=== PATIENT | male | born 1965 ===

== ENCOUNTER → 2021-12-15 12:41 | Outpatient (BNVA) | payer OTHER, SELFPAY | PROVIDERS: PCP Internal Medicine; Visit Provider Nurse Practitioner Family | DX: G20 Parkinson's disease (principal); G24.9 Dystonia, unspecified; R29.6 Repeated falls | CPT/HCPCS: 99212 ==

== ENCOUNTER → 2022-09-03 09:10 | Outpatient (BNVA) | payer OTHER, SELFPAY | PROVIDERS: PCP Internal Medicine; Visit Provider Nurse Practitioner Family | DX: G20 Parkinson's disease (principal); G24.9 Dystonia, unspecified; R29.6 Repeated falls; Z59.02 Unsheltered homelessness | CPT/HCPCS: 99212 ==

== ENCOUNTER → 2022-12-11 13:24 | Outpatient (BNVA) | payer OTHER, SELFPAY | PROVIDERS: PCP Internal Medicine; Visit Provider Physician Assistant | DX: M96.1 Postlaminectomy syndrome, not elsewhere classified (principal) | CPT/HCPCS: 99212 ==

== ENCOUNTER → 2023-01-18 08:45 | Outpatient (BNVA) | payer OTHER, SELFPAY | PROVIDERS: PCP Internal Medicine; Visit Provider Nurse Practitioner Family | DX: M96.1 Postlaminectomy syndrome, not elsewhere classified (principal); G24.9 Dystonia, unspecified; G20 Parkinson's disease; R29.6 Repeated falls | CPT/HCPCS: 99202; 99212 ==

== ENCOUNTER 2023-06-04 13:59 | Outpatient (AMB) | payer OTHER, SELFPAY ==
--- NOTE | 2023-06-04 14:06 | A.OFFVIS_ITS ---
Intake Vital Signs 06/04/23 14:25 Height 6 ft 2 in Weight 246 lb 2 oz BMI 31.6 BP 146/88 H Blood Pressure Location Lt brachial Position Sitting Respiration 16 Pulse 63 Pulse Source Pulse Oximeter Pulse Oximetry (%) 97 Oxygen Delivery Method Room Air Intake Visit Reasons: Follow up-Parkinson # not in service Intake Note: Pt presents tot he office for 4 month follow up for Parkinson's. He reports he has not been sleeping at all. His legs are getting worse and he's having more constant falls now. Tremors are worse. He c/o low energy and always feeling like crap . Allergies No Known Allergies Allergy (Verified 06/04/23 14:07) HPI HPI Comments History of Present Illness Details 58 y/o male patient presents for follow up of Parkinson's and frequent falls. Pt reports dyskinesias has been improved a little bit and has less falls, too. Pt is currently on Sinemet 25/100 mg, 2 tabs QID, and pramipexole 0.25 mg QID at 7am, 11am, 3pm and 7 pm. Denies hallucination or light headedness. He reports constipation and uses stool softener. He does not sleep well, uses Tylenol PM and it helps a little bit. He feels less energy, more fatigue during daytime. [facility]LY [facility], [facility] Medical History Carpal tunnel syndrome of right wrist Injury of head and neck Surgical History History of back surgery History of carpal tunnel surgery H/O hernia repair Social History Alcohol intake: former Patient Tobacco Use Status: Never used Tobacco Review of Systems Const All systems reviewed & are unremarkable except as noted in HPI and below ENT Reports Normal hearing present Neuro Reports Normal hearing present Physical Exam Vital Signs: Last Vital Signs Pulse 63 06/04/23 14:25 Resp 16 06/04/23 14:25 BP 146/88 H 06/04/23 14:25 Pulse Ox 97 06/04/23 14:25 Oxygen Delivery Method Room Air 06/04/23 14:25 BMI result Body Mass Index 31.6 Const General: cooperative Nutritional Appearance: obese Orientation/consciousness: patient oriented x3 Limitations: physical limitations and ambulation with cane HEENT Head: Yes normocephalic Resp Effort & Inspection: normal respiratory effort and able to speak in complete sentences Neuro Other: Dyskinesia has improved a lot, no head or legs movement. Decreased finger tap, bilaterally. Soft speech. General: patient oriented x3, tone normal and moves all extremities Cranial nerves: Yes Bilaterally intact EOM present, Yes Normal facial strength present, Yes Midline tongue present, Yes Symmetric palate elevation present, Yes Normal hearing present and Yes Ability to bilaterally rotate head present Gait exam (Neuro): Assisted gait required (cane, good steps, and no arm swing. 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 Continue pramipexole to 0.125 mg QID along with Sinemet 25/100 mg QID. Advised patient to try vitamin B12 daily. 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
[2023-06-04 14:25] VITALS: BP 146/88; PULSE 63; RESP 16; O2SAT 97; BMI 31.6
== END 2023-06-04 14:55 | disposition home or self-care (01) ==
PROVIDERS: PCP Internal Medicine; Visit Provider Nurse Practitioner Family
DX: G20.B1 Parkinson's disease with dyskinesia, without mention of fluctuations (principal); R29.6 Repeated falls
CPT/HCPCS: 99214

== ENCOUNTER → 2023-06-04 13:59 | Outpatient (BNVA) | payer OTHER, SELFPAY | PROVIDERS: PCP Internal Medicine; Visit Provider Nurse Practitioner Family | DX: G20.B1 Parkinson's disease with dyskinesia, without mention of fluctuations (principal); R29.6 Repeated falls; G24.9 Dystonia, unspecified | CPT/HCPCS: 99212 ==

== ENCOUNTER 2023-10-20 08:59 | Outpatient (AMB) | payer OTHER, SELFPAY ==
--- NOTE | 2023-10-20 09:00 | MHC.OFFVIS ---
Intake Vital Signs 10/20/23 09:10 Height 6 ft 2 in Weight 246 lb BMI 31.6 BP 140/74 H Blood Pressure Location Lt brachial Position Sitting Pulse 63 Pulse Source Pulse Oximeter Pulse Oximetry (%) 100 Oxygen Delivery Method Room Air Intake Visit Reasons: 4m f/u for Parkinson's w/[facility] & MD Jennie PRESSLEY w/address Intake Note: Patient presents for 4 months f/u. Needs medical papers from 2014 to present date showing he has been seen by our practice. Allergies No Known Allergies Allergy (Verified 10/20/23 09:09) HPI HPI Comments History of Present Illness Details 58 y/o male patient presents for follow up of Parkinson's and frequent falls. Pt reports dyskinesias has improved a little, but he still falls everyday. Pt is currently on Sinemet 25/100 mg, 2 tabs QID, and pramipexole 0.25 mg QID at 7am, 11am, 3pm and 7 pm. No specific freezing episodes, but falls every day. He does not use cane regularly. Denies hallucination or light headedness. He reports constipation and uses stool softener. He does not sleep well, uses Tylenol PM and it helps a little bit. He feels less energy, more fatigue during daytime. [facility] Medical History Carpal tunnel syndrome of right wrist Injury of head and neck Surgical History History of back surgery History of carpal tunnel surgery H/O hernia repair Social History Alcohol intake: former Patient Tobacco Use Status: Never used Tobacco Review of Systems Const All systems reviewed & are unremarkable except as noted in HPI and below ENT Reports Normal hearing present Neuro Reports Normal hearing present Physical Exam Vital Signs: Last Vital Signs Pulse 63 10/20/23 09:10 BP 140/74 H 10/20/23 09:10 Pulse Ox 100 10/20/23 09:10 Oxygen Delivery Method Room Air 10/20/23 09:10 BMI result Body Mass Index 31.6 Const General: cooperative Nutritional Appearance: obese Orientation/consciousness: patient oriented x3 Limitations: physical limitations and ambulation with cane HEENT Head: Yes normocephalic Resp Effort & Inspection: normal respiratory effort and able to speak in complete sentences Neuro Other: Dyskinesia has improved a lot, no head or legs movement. Decreased finger tap, bilaterally. Soft speech. General: patient oriented x3, tone normal and moves all extremities Cranial nerves: Yes Bilaterally intact EOM present, Yes Normal facial strength present, Yes Midline tongue present, Yes Symmetric palate elevation present, Yes Normal hearing present and Yes Ability to bilaterally rotate head present Gait exam (Neuro): Assisted gait required (cane, good steps, and no arm swing. 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 Continue pramipexole to 0.125 mg QID. Advised patient to try Sinemet 25/100 mg, 1.5 tabs 6 times a day. Continue to take vitamin B12 daily. 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
[2023-10-20 09:10] VITALS: BP 140/74; PULSE 63; O2SAT 100; BMI 31.6
== END 2023-10-20 09:33 | disposition home or self-care (01) ==
PROVIDERS: PCP Internal Medicine; Visit Provider Nurse Practitioner Family
DX: G20.B1 Parkinson's disease with dyskinesia, without mention of fluctuations (principal); R29.6 Repeated falls
CPT/HCPCS: 99213

== ENCOUNTER → 2023-10-20 08:59 | Outpatient (BNVA) | payer OTHER, SELFPAY | PROVIDERS: PCP Internal Medicine; Visit Provider Nurse Practitioner Family | DX: G20.A1 Parkinson's disease without dyskinesia, without mention of fluctuations (principal); G24.9 Dystonia, unspecified; R29.6 Repeated falls | CPT/HCPCS: 99212 ==

== ENCOUNTER 2024-04-21 09:49 | Outpatient (AMB) | payer OTHER, SELFPAY ==
[2024-04-21 09:57] VITALS: PULSE 57; O2SAT 98; BMI 31.2
--- NOTE | 2024-04-21 09:57 | A.OFFVIS_ITS ---
Vital Signs 04/21/24 09:57 Height 6 ft 2 in Weight 243 lb BMI 31.2 Pulse 57 Pulse Source Pulse Oximeter Pulse Oximetry (%) 98 Oxygen Delivery Method Room Air Intake Visit Reasons: 6 month F/U Intake Note: Patient presents for 6 month walking is getting worst and falling down more. Allergies No Known Allergies Allergy (Verified 04/21/24 10:04) Medication List - Last Reconciled 04/21/24 by LISS Murdock amantadine HCl 50 mg (1/2 x 100 mg) PO BID 30 days carbidopa-levodopa 25-100 mg 2 tabs orally 5 x's per day; 30 days mecobalamin (vitamin B12) 1,000 mcg PO DAILY 30 days pramipexole 0.25 mg PO QID pramipexole 0.125 mg PO QID 30 days walker As directed, U step walker HPI Comments Details: 59-yr-old male presents for f/u visit of Parkinson's. he is accompanied by his mother, Rachelle. Pt's primary concerns are: Pt has been having difficulty with daytime energy/sleepiness, unpredictable off-times, and falls. Pt had called the office and requested that Ritalin be resumed, but we suggested he try Amantadine 50mg bid- however pt has not started this yet. Pt's mother asks about trying Cresont (CD-LD IR/ER) which was FDA approved last month- but is not yet available. Pt's current PD medication regimen: CD-LD 25-100mg 2 tabs 5 x's per day (every 3 hrs). Pramipexole 0.125mg 1 tab 5 x's per day (every 3 hrs). Do medication effects last between doses: Unsure- he is still having unpredictable episodes of freezing. States he is off x's 4 hrs per day. Do you notice your medications wearing off or kicking in: takes 1/2 hour to kick in. ADL's: Sometimes needs help w/ shirts/t-shirts. Swallowing: Denies Cough: Denies Drooling: Only at night Orthostatic lightheadedness: Denies Constipation: Yes. Dulcolax prn helps. Urinary symptoms: Denies Tremor: Denies Dyskinesia: More so when excited- not overly bothersome. Stiffness: Yes, mostly in his back and knees. Gait changes: Sometimes can walk easily, but has frequent pauses and freezes. He does use a cane. He can run much easier. Freezing: Unpredictable freezing. Falls: Multiple falls. He had a fall in mid-Mar, he landed on his hands, and his right wrist is still quite sore. He did have a [facility] ER eval- right wrist Xr-ray was negative. Mood: Anxiety, depression, frustration. His mother is his support. Hallucinations: Denies Memory: Denies any issues Sleep: Tosses and turns a lot. Exercise: Very little exercise now. He got bored with it. But also has increased pain r/t repeated falls- more so in his back, arms, shoulders. [facility] Medical History Carpal tunnel syndrome of right wrist Injury of head and neck Surgical History History of back surgery History of carpal tunnel surgery H/O hernia repair Social History Alcohol intake: former Patient Tobacco Use Status: Never used Tobacco Review of Systems Const All systems reviewed & are unremarkable except as noted in HPI and below Physical Exam Vital Signs: Last Vital Signs Pulse 57 04/21/24 09:57 Pulse Ox 98 04/21/24 09:57 Oxygen Delivery Method Room Air 04/21/24 09:57 BMI result Body Mass Index 31.2 Const General: cooperative and no acute distress Resp Effort & Inspection: normal respiratory effort and able to speak in complete sentences Neuro Other: General: A&O x's 3. Right wrist tender to touch w/o warmth, edema, discoloration. Expression: Slightly decreased Voice: Soft Tremor: None Tone: BUE R > L tone Dyskinesia: Generalized dyskinesias FFM: Bradykinesia, more so on right Foot taps: Bradykinesia, more so on right. Gait: Slow to stand, Dyskinetic, slight stoop, decreased arm swing, knees bent, short steps w/ low floor clearance. Psych: Pleasant affect, but generally frustrated. 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 Code(s): G24.9 - Dystonia, unspecified; G20 - Parkinson's disease Category: Medical (2) Right hand pain: Code(s): M79.641 - Pain in right hand Category: Medical (3) Frequent falls: Code(s): R29.6 - Repeated falls Category: Medical (4) Parkinson disease with dyskinesia and fluctuating manifestations: Code(s): G20.B2 - Parkinson's disease with dyskinesia, with fluctuations Category: Medical (5) Hypersomnia: Code(s): G47.10 - Hypersomnia, unspecified Category: Medical Plan Trial Rytary 48.75-195mg cap- 2 caps po 5 x's per day. In hopes this will reduce off-times w/o exacerbating dyskinesias. Once Rytray received, stop CD-LD 25-100mg 2 tabs 5 x's per day (every 3 hrs). Reduce Pramipexole 0.125mg from 1 tab 5 x's per day (every 3 hrs) by 1 tba per day per week, then stop. In hopes this lessens daytime sleepiness. Hold Amantadine- pt never started. Will retry low dose ritalin 10mg in extended release formulation to optimize daytime energy and optimize physical activity. OT eval & Tx for RYE pain. PT eval & tx for gait, falls. Pt may benefit from trying a U-step PD specific walker. Reviewed simple strategies to break freezing episodes. Written instructions and orders given to pt. Future considerations- referral to psychologist/counselor, optimize tx of mood s/s, Inbrija. Orders: Orders PT Evaluation and Treatment Today G20 - Parkinson's disease, G24.9 - Dystonia, unspecified, R29.6 - Repeated falls OT Evaluation and Treatment Today G20 - Parkinson's disease, G24.9 - Dystonia, unspecified, M79.641 - Pain in right hand Medications: New carbidopa-levodopa 48.75-195 mg ER (Rytary) 2 caps orally 5 x's per day; divide evenly over waking hours 30 days 300 caps 6RF G20.B2 - Parkinson's disease with dyskinesia, with fluctuations methylphenidate HCl LA (Ritalin LA) Partial Fill upon patient request. 10 mg PO QAM 30 days 30 caps 0RF G20.B2 - Parkinson's disease with dyskinesia, with fluctuations, G47.10 - Hypersomnia, unspecified Discontinued pramipexole Discontinued Reason: Patient no longer taking 0.25 mg PO QID 120 tabs 6RF carbidopa-levodopa 25-100 mg Discontinued Reason: Doctor's Order 2 tabs orally 5 x's per day; 30 days 300 tabs 6RF amantadine HCl take last dose before 3pm. Take with food. 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
== END 2024-04-21 11:07 | disposition home or self-care (01) ==
PROVIDERS: PCP Internal Medicine; Visit Provider Nurse Practitioner Family
DX: G20.B2 Parkinson's disease with dyskinesia, with fluctuations (principal); M79.641 Pain in right hand; R29.6 Repeated falls; G47.10 Hypersomnia, unspecified
CPT/HCPCS: 99214; G2211

== ENCOUNTER → 2024-04-21 09:49 | Outpatient (BNVA) | payer OTHER, SELFPAY | PROVIDERS: PCP Internal Medicine; Visit Provider Nurse Practitioner Family | DX: G20.B2 Parkinson's disease with dyskinesia, with fluctuations (principal); G24.9 Dystonia, unspecified; G47.14 Hypersomnia due to medical condition; R29.6 Repeated falls; M79.641 Pain in right hand | CPT/HCPCS: 99212 ==

== ENCOUNTER 2024-10-16 10:50 | Outpatient (REF) | payer OTHER, SELFPAY ==
--- OUTSIDE RECORDS SUMMARY | 2024-10-16 12:48 | XMS_ITS | Clinical Summary ---
Author Organization [facility], Address [address] [place] [address] Phone Care Team Providers Care Tying Machine Operator Name Role Phone Eric Metzger Primary Care Provider [phone] Allergies Active Allergy Reactions Criticality Noted Date Comments Codeine Nausea,Vomiting 10/13/2021 Ibuprofen Nausea,Vomiting 10/13/2021 Medications carbidopa-levod opa (SINEMET) 25-100 MG per tablet Take 2 tablets by mouth in the morning and 2 tablets in the evening and 2 tablets before bedtime. Active pramipexole (MIRAPEX) 0.5 MG tablet Take 0.5 mg by mouth 1 (one) time each day Active Active Problems Problem Noted Date Diagnosed Date Back pain 10/13/2021 Degeneration of lumbar intervertebral disc 10/13 Social History Tobacco Use Types Packs/Day Years Used Date Smoking Tobacco: Former Cigarettes Q uit: 08/10/2014 Smokeless Tobacco: Never Alcohol Use Standard Drinks/Week Comments Not Currently 0 (1 standard drink = 0.6 oz pur e alcohol) quit 2013 Sex and Gender Information Value Date Recorded Sex Assigned at Not on file Legal Sex Male 11:17 AM EST Gender Identity Not on file Sexual Orientation Not on file Last Filed Vital Signs Vital Sign Reading Time Taken Comments Blood Pressure 126/77 10/13/2021 11:28 AM EST Pulse 59 10/13/2021 11:28 AM EST Temperature 36.2 ??C (97.2 ??F) 10/13/2021 11:[address] Respiratory Rate - - Oxygen Saturation - - Inhaled Oxygen Concentration - - Weight 113 kg (250 lb) 10/13/2021 11:28 AM EST Height 185.4 cm (6' 1 ) 10/13/2021 11:28 AM EST Body Mass Index 32.98 10/13/2021 11:28 AM EST Plan of Treatment Health Maintenance Due Date Last Done Comments Hepatitis B Vaccine (1 of 3 - 19+ 3-dose series) 1985 Colorectal Cancer Screening: Annual FOBT 2015 Colorectal Cancer Screening: Colonoscopy 2015 Colorectal Cancer Screening: Sigmoidoscopy 2015 Influenza Vaccine (#1) 2024 Pneumococcal Vaccine: Pediat rics (0 to 5 Years) and At-Risk Patients (6 to 64 Years) Aged Out No longer eligible b ased on patient's age to complete this topic Insurance [facility] Care Teams Tying Machine Operator Relationship Specialty Start Date End Date Eric Metzger [address] [place] [address] PCP - General Internal Medicine 10/22/21
--- OUTSIDE RECORDS SUMMARY | 2024-10-16 12:48 | XMS_ITS | Encounter Summary ---
Author Organization [facility] Address [address] [place] [address] Care Team Providers Care Public Health Officer Name Role Phone Eric Melissa MD Primary Care Provider [phone] Reason for Visit * Reason Onset Date Comments Back Pain 10/05/2024 Fall 10/05/2024 Encounter Details Date Type Department Care Team (Late st Contact Info) Description 10/05/2024 Telephone Internal Medicine - [facility] [address] [place], [place] [phone] Eric Melissa MD [address] [place] [id number] Back Pain; Fall Social History Tobacco Use Types Packs/Day Years Used Date Smoking Tobacco: Former Cigarettes Q uit: 08/10/2014 Smokeless Tobacco: Never Alcohol Use Standard Drinks/Week Comments No 0 (1 standard drink = 0.6 oz pur e alcohol) Sex and Gender Information Value Date Recorded Sex Assigned at Not on file Legal Sex Male 1:16 PM EST Gender Identity Not on file Sexual Orientation Not on file documented as of this encounter Progress Notes * Anel Samano MA - 10/06/2024 1:39 PM EST Hospital follow up scheduled. * Francine Jalloh - 10/06/2024 11:56 AM EST Patient is calling back from [phone] please call back * Celia Dawson MA - 10/05/2024 12:53 PM EST Unable to reach pt, number on file no longer in service alternate number no VM set up just rings * Eric Melissa MD - 10/05/2024 12:25 PM EST Noted. He needs to book a follow-up appointment once he is discharged from the hospital to set up PT/OT and home services. * Sarah Beth Granger RN - 10/05/2024 9:52 AM EST FYI Spoke with pt he is c/o frequent falls, he has Parkinson's using walker and cane,he has been falling daily 4-5 times, he denies hitting his head, Advised to call ambulance an to go to the ER to get evaluated, pt states he can drive himself to [place], he wears kneepads and uses walker and cane. Advised pt to call after evaluated to schedule f/u appt, he hasn't been seen since last December, he states hisneurologist has been ordering his medications, ? Pt to get some home services PT/OT in place * Karishma Newton - 10/05/2024 9:36 AM EST Patient call requires triage: Symptoms patient is presenting: pt fell last week and injured his back, he has parkinsons and has had rods put in his back, he has back pain and feels like something may have shifted in his back. How long has patient had these symptoms?: 1 week For ALL patients calling to schedule any appointment (routine, sick visit, follow up, consult, etc.) in the outpatient setting please ask the following questions: Do you have fever of higher than 101, sore throat with difficulty swallowing or severe shortness ofbreath? no If YES to any of these above symptoms, send a message to triage and do not book. Red dot. If no, an audio or video visit should be booked. Have you had close contact with someone with Coronavirus in the last 14 days? no Have you traveled abroad? no Have you traveled recently to another state outside of [place], [place], [place], [place], [place], [place], [place]? no o If yes, did you quarantine for 14 days or have a negative covid test? no If yes to any of the above, patient is not to be scheduled in office until after 14 day quarantine or negative covid test. If pain or injury related was it due to an accident at work or from a motor vehicle accident? If yes, date of accident/Injury: No If yes, gather 3rd alliance party insurance information Third Libertarian Information: not applicable PCP: Eric Melissa MD Payor: / No coverage found. documented in this encounter Plan of Treatment Upcoming Encounters Date Type Department Care Team (Late st Contact Info) Description 10/19/2024 10:30 AM EST Office Visit Internal Medicine - [address] [phone] Coy Shaw NP [address] [place] [phone] documented as of this encounter Visit Diagnoses Not on filedocumented in this encounter Care Teams Public Health Officer Relationship Specialty Start Date End Date Eric Melissa MD [address] [place] [address] PCP - General Internal Medicine 07/24/16 documented as of this encounter
--- OUTSIDE RECORDS SUMMARY | 2024-10-16 12:48 | XMS_ITS | Encounter Summary ---
Author Organization [employer] Address [address] [facility] [address] [place] [address] Care Team Providers Care Solution Specialist Name Role Phone Unavailable Primary Care Provider Unavailabl e Reason for Visit * Reason Onset Date Comments appointment slip 02/11/2023 Encounter Details Date Type Department Care Team (Late st Contact Info) Description 02/11/2023 Telephone [facility] [address] [place], [place] [phone] Suzanne Matthew BDS [address] [place], [place] [phone] appointment slip Social History Tobacco Use Types Packs/Day Years Used Date Smoking Tobacco: Never Assessed Sex and Gender Information Value Date Recorded Sex Assigned at Male 06/15/2022 10:26 AM EDT Legal Sex Male 10:26 AM EDT Gender Identity Male 06/15/2022 10:26 AM EDT Sexual Orientation Don't know 06/15/2022 10 :26 AM EDT documented as of this encounter Miscellaneous Notes * Telephone Encounter - Angeline Luis - 02/11/2023 11:28 AM EDT Patient is requesting appt slip to be mailed out to his address DR documented in this encounter Plan of Treatment Not on file documented as of this encounter Visit Diagnoses Not on filedocumented in this encounter
--- OUTSIDE RECORDS SUMMARY | 2024-10-16 12:48 | XMS_ITS | Encounter Summary ---
Author Organization [employer] Address [address] [facility] [address] [place] [address] Care Team Providers Care Crocheter Name Role Phone Unavailable Primary Care Provider Unavailabl e Reason for Visit * Reason Onset Date Comments dentures 04/09/2023 Encounter Details Date Type Department Care Team (Late st Contact Info) Description 04/09/2023 Telephone [facility] [address] [place], [place] [phone] Suzanne Matthew BDMichelle [address] [place], [place] [phone] dentures Social History Tobacco Use Types Packs/Day Years [...] * Telephone Encounter - Angeline Luis - 04/09/2023 12:55 PM EDT Patient is unhappy with his bottom dentures and wants a new set made. Informed patient that insurance does not cover another set of dentures for another 7 year and it would be an out of pocket expense. He questioned why he would have to pay for soemthign that is not fitting correctly I did inform patient that he can get an adjustment. * Telephone Encounter - Angeline Luis - 04/09/2023 12:53 PM EDT Patient is unhappy with his bottom dentures and wants a new set made. Informed patient that insurance does not cover another set of dentures for another 7 year and it would be an out of pocket expense. He questioned why he would have to pay for soemthign that is not fitting correctly I did inform patient that he can get an adjustment. documented in this encounter Plan of Treatment Not on file documented as of this encounter Visit Diagnoses Not on filedocumented in this encounter
--- OUTSIDE RECORDS SUMMARY | 2024-10-16 12:48 | XMS_ITS | Clinical Summary ---
Author Organization [facility] Address [address] [place] [address] Care Team Providers Care Complaint Evaluation Supervisor Name Role Phone Eric Melissa MD Primary Care Provider [phone] Allergies Active Allergy Reactions Criticality Noted Date Comments Codeine Nausea And Vomiting 04/02/2015 Ibuprofen Nausea And Vomiting 04/02/2015 Medications acetaminophen (TYLENOL 8 HOUR) 650 mg 8 hr tablet TAKE 1 TABLET BY MOUTH TWICE A DAY NEEDED FOR PAIN 4 Active pramipexole (MIRAPEX) 0.25 mg tablet Take 1 Tablet by mouth 4 times daily. Active cyclobenzaprine (FLEXERIL) 10 mg tablet TAKE 1 TABLET BY MOUTH AT BEDTIME ONCE DAILY NEEDED FOR MUSCLE SPASMS. 4 Active sildenafiL (VIAGRA) 50 mg tablet Take 1 tab 30 mintues before intercourse 2 Active carbidopa-levod opa (SINEMET) 25-100 mg per tablet Take 2 tablets by mouth 3 times daily. Active Active Problems Problem Noted Date Diagnosed Date Lumbar spondylosis 05/21/2022 Anxiety 10/07/2021 Bipolar disorder 10/07/2021 Abdominal wall pain 05/17/2019 Diverticulosis 09/18/2016 Parkinson's disease 01/01/2015 Overview (10/09/2024): Neurology (10/15/17): second opinion with Dr Lainez, cont lyrica 50mg bid, cont sinemet 25/100 (2-1-1-1), mirapex 0.5mg qid. Precribed ritalin 10mg BID Neurology (05/21/17): Seen for Parkinson, continue Sinemet 25/100 6 tabs a day, pramipexole 0.5 mg 3 times a day, continue exercise Dr Aburto, neurologist. Failed back syndrome 08/10/2014 Overview (10/09/2024): Last Assessment & Plan: Patient is 3 weeks s/p L3-S1 fusion (anterior lateral and posterior) and notes that his preop back and leg symptoms are improved. He is experiencing surgical/incisional pain, requiring oxycodone. He mentions if he stands for 15 minutes it bothers him and gives him left leg pain, left buttock, posterior thigh. When he is lying down his legs go numb, he is not sleeping well. He denies fever, sweats chills, wound drainage. He is eating well. Bowel bladder intact. He is ambulating with a cane. Patient has follow-up appointment in 6 weeks with lumbar spine x-rays with Dr. Ramirez. All postop questions answered. I asked explain things should continue to improve with time as things heal. He can call with any concerns or questions prior to his next appointment. Foot drop 08/10/2014 Encounters Date Type Department Care Team Description 10/05/2024 Telephone Internal Medicine - [facility] [address] [place] [address] Eric Melissa MD Back Pain; Fall from Last 3 Months Immunizations Name Administration Dates Next Due Influenza trivalent, 0.5mL, preservative free (Fluarix; FluLaval; Fluzone) ages 6mo and older (Afluria) 3 years and older 09/18/2017 Surgical History Surgery Date Site/Laterality Comments HERNIA REPAIR Right PROCEDURE: HISTORICAL HERNIA REPAIR/ING CARPAL TUNNEL RELEASE Right PROCEDURE: HISTORICAL CARPAL TUNNEL REL; COMMENT: twice OTHER SURGICAL HISTORY PROCEDURE: OSTEOGENIC STIMULATOR SPINAL COLONOSCOPY 09/18/16 PROCEDURE: HISTORICAL COLONOSCOPY; COMMENT: tics; repeat in ten yrs under propofol Medical History Medical History Date Comments Parkinson's disease (CMS/HCC) DX :Parkinson's disease (HCC) Bipolar disorder (CMS/HCC) DX:Bi polar disorder (HCC) Anxiety DX:Anxiety Family History Medical History Relation Name Comments Hypertension Father Other: Heart disease Father Valvula r heart disease Stroke Father Relation Name Status Comments Brother Alive Father Sister Alive Social History Tobacco Use Types Packs/Day Years [...] on file Sexual Orientation Not on file Obstetrics History Last Filed Vital Signs Vital Sign Reading Time Taken Comments Blood Pressure 138/82 01/13/2024 9:22 AM EDT Pulse 69 01/13/2024 9:02 AM EDT Temperature - - Respiratory Rate - - Oxygen Saturation - - Inhaled Oxygen Concentration - - Weight 111 kg (243 lb 11.2 oz) 01/13/2024 9:02 A M EDT Height 185.4 cm (6' 1 ) 01/13/2024 9:02 AM EDT Body Mass Index 32.15 01/13/2024 9:02 AM EDT Plan of Treatment Upcoming Encounters Date Type Department Care Team (Late st Contact Info) Description 10/19/2024 10:30 AM EST Office Visit Internal Medicine - [address] [address] Coy Shaw NP [address] [place] [id number] Health Maintenance Due Date Last Done Comments DTaP,Tdap,and Td Vaccines (1 - Tdap) 1985 Hepatitis B Vaccines (1 of 3 - 19+ 3-dose series) 1985 Pneumococcal Vaccine: 50+ Years (1 of 1 - PCV) 01/22/2016 Zoster Vaccines (1 of 2) 01/22/2016 Depression Screening 07/25/2022 HIV Screening 07/25/2022 Hepatitis C Screening 07/25/2022 Lung Cancer Screening (Low Dose CT) 07/25/2022 Social Influencers of Health Screening 07/25/2022 COVID-19 Vaccine (3 - 2023-2 5 season) 2024 01/10/2021, 12/20/2020 Influenza Vaccine (#1) 2024 09/18/2017 Colorectal Cancer Screening: Colonoscopy 09/18/2026 09/18/2016 Cholesterol Screening (Lipid Panel) 03/26/2027 03/26/2022 HIB Vaccines Aged Out No longer eligi ble based on patient's age to complete this topic HPV Vaccines Aged Out No longer eligi ble based on patient's age to complete this topic Hepatitis A Vaccines Aged Out No long er eligible based on patient's age to complete this topic IPV Vaccines Aged Out No longer eligi ble based on patient's age to complete this topic MMR Vaccines Aged Out No longer eligi ble based on patient's age to complete this topic Meningococcal ACWY Vaccine Aged Out N o longer eligible based on patient's age to complete this topic Meningococcal B Vacine Aged Out No lo nger eligible based on patient's age to complete this topic Pneumococcal Vaccine: Pediatrics (0 to 5 Years) and At-Risk Patients (6 to 64 Years) Aged Out No longer eligible b ased on patient's age to complete this topic RSV Immunization Patients Under 20 months Aged Out No longer eligible b ased on patient's age to complete this topic Varicella Vaccines Aged Out No longer eligible based on patient's age to complete this topic Procedures Procedure Name Priority Date/Time Associated Diagnosis Comments LIPID PANEL Routine 03/26/2022 COLONOSCOPY Routine 09/18/2016 from Last 3 Months or Most Recently Relevant to Health Maintenance Results * Lipid panel (03/26/2022) LDL/HDL Ratio 3 0 - 4 Triglycerides 124 0 - 150 mg/dL Cholesterol 183 0 - 200 mg/dL HDL 59 >=40 mg/dL LDL Cholesterol 100 0 - 100 mg/dL Blood Venous blood specimen / Unknown us Historical Provider LAB BLOOD ORDERABLES Rizwana l Result * Colonoscopy (09/18/2016) Colonoscopy No interpretation abstracted Anatomical Region Laterality Modality Other us Historical Provider HEALTH MAINTENANCE Final Result from Last 3 Months or Most Recently Relevant to Health Maintenance Care Teams Complaint Evaluation Supervisor Relationship Specialty Start Date End Date Erci Melissa MD [address] [place] [id number] PCP - General Internal Medicine 07/24/16
--- OUTSIDE RECORDS SUMMARY | 2024-10-16 12:48 | XMS_ITS | Clinical Summary ---
Author Organization [employer] Address [address] [facility] [address] [place] [address] Care Team Providers Care Casino Floorperson Name Role Phone Unavailable Primary Care Provider Unavailabl e Allergies No known active allergies Medications No known medications Social History Tobacco Use Types Packs/Day Years Used Date Smoking Tobacco: Never Smokeless Tobacco: Never Tobacco Cessation:Counseling Given: Not Answered Sex and Gender Information Value Date Recorded Sex Assigned at Male 06/15/2022 10:26 AM EDT Legal Sex Male 10:26 AM EDT Gender Identity Male 06/15/2022 10:26 AM EDT Sexual Orientation Don't know 06/15/2022 10 :26 AM EDT Plan of Treatment Health Maintenance Due Date Last Done Comments CT Colonography 1966 Colonoscopy 1966 Colorectal Cancer Screening 1966 Dental Oral Exam 1966 Dental Prophylaxis 1966 Dental X-Ray: Bitewings 1966 Dental X-Ray: Full Mouth 1966 Depression Screening 1966 FIT DNA/Cologuard 1966 FIT 1966 FOBT 1966 HIV Screening 1966 Lipid Panel 1966 SDOH Screening 1966 Sigmoidoscopy 1966 Alcohol/Substance Use Screening 1978 Hepatitis C Screening 01/22/1984 DTaP/Tdap/Td Vaccines (1 - Tdap) 1985 Hepatitis B Vaccines (1 of 3 - 19+ 3-dose series) 1985 Pneumococcal Vaccine: 50+ Years (1 of 1 - PCV) 01/22/2016 Zoster Vaccines (1 of 2) 01/22/2016 COVID-19 Vaccine (3 - 2023-2 5 season) 2024 01/10/2021, 12/20/2020 Influenza Vaccine (#1) 2024 09/18/2017 Tobacco Screening 11/22/2024 11/23/2023 RSV Patients and Patients Aged 60 years or older (1 - 1-dose 75+ series) 2041 HIB Vaccines Aged Out No longer eligi [...] patient's age to complete this topic Meningococcal Vaccine Aged Out No karen cierra eligible based on patient's age to complete this topic RSV under 20 months Aged Out No longe r eligible based on patient's age to complete this topic Rotavirus Vaccines Aged Out No longer eligible based on patient's age to complete this topic [facility] ST[facility] ADULT
== END 2024-10-16 10:51 | disposition home or self-care (01) ==
LOC: CF 10:50
DX: M96.1 Postlaminectomy syndrome, not elsewhere classified (principal)
CPT/HCPCS: 99212

== ENCOUNTER 2024-10-16 13:15 | Outpatient (AMB) | payer OTHER, SELFPAY ==
--- NOTE | 2024-10-16 13:15 | HO.SPINEOV ---
Intake Visit Reasons: low back pain Intake Note: Mr. Ferguson is here today c/o low back pain. Oyster Bed Worker Required: No Allergies No Known Allergies Allergy (Verified 10/16/24 13:16) Assessment & Plan Assessment & Plan (1) Failed back syndrome: Code(s): M96.1 - Postlaminectomy syndrome, not elsewhere classified Category: Medical Plan Mr Ferguson is returning to the office today to see us. He had an L3-S1 anterior/oblique lumbar interbody fusion done a few years ago. Unfortunately he never so much relief in the way of the back pain after surgery. He has history of Parkinson's disease and has had a number of falls over the last few months. In fact more than a few, he has had about 4 falls a day. He had x-rays done at the [facility] Emergency room showing evidence of compression fractures in the lower thoracic upper lumbar area which may be new. He has been having ongoing back pain over the last few months in the setting of these falls. Specifically on the right side of the low back in the left side of the upper lumbar region. His exam is reassuring that he can stand independently and walk but he does have a hunched posture. I did review the x-rays and I am not sure but there maybe something in the upper lumbar lower thoracic that looks like it could be a new compression fracture. I will get a new lumbar MRI at [facility] open MRI at the patient's request and I can call him with the results. Total amount of time spent in this visit was 20 minutes in discussion of symptoms, ordering imaging and subsequent plan of care Dickson Ramirez MD,PhD [facility] Orders: Orders MR lumbar spine wo con Today M96.1 - Postlaminectomy syndrome, not elsewhere classified Coding Level of Care Code Est Pt Level 3 (02652) Diagnoses Failed back syndrome M96.1
--- OUTSIDE RECORDS SUMMARY | 2024-10-16 15:28 | XMS_ITS | Clinical Summary ---
Author Organization [facility], Address [address] [place] [address] Phone Care Team Providers Care Heavy Equipment Engine Mechanic Name Role Phone Eric Metzger Primary Care Provider [phone] Allergies Active Allergy Reactions Criticality Noted Date [...] patient's age to complete this topic Insurance [facility] Care Teams Heavy Equipment Engine Mechanic Relationship Specialty Start Date End Date Eric Metzger [address] [place] [address] PCP - General Internal Medicine 10/22/21
--- OUTSIDE RECORDS SUMMARY | 2024-10-16 15:28 | XMS_ITS | Clinical Summary ---
Author Organization [facility] [address] it Address [address] [place] [address] Care Team Providers Care Orthodontist Small Business Owner Name Role Phone Eric Melissa MD Primary Care Provider [phone] Allergies Active Allergy Reactions Criticality Noted Date [...] Team Description 10/05/2024 [facility] [address] [facility] [place] [phone] Eric Melissa MD Back Pain; Fall from [...] (HCC) Bipolar disorder (CMS/HCC) DX:Bi polar disorder ([facility]) Anxiety DX:Anxiety Family History Medical History Relation Name Comments Hypertension Father Other: Heart disease Father Valvjose r heart disease Stroke Father Relation Name [...] AM EST Office Visit Internal Medicine - [address] [address] Coy Shaw NP [address] [place] [phone] Health Maintenance Due Date Last Done Comments [...] mg/dL Blood Venous blood specimen / Unknown Historical Provider LAB BLOOD ORDERABLES Rizwana l Result * Colonoscopy (09/18/2016) Colonoscopy No interpretation abstracted Anatomical Region Laterality Modality Other us Historical Provider HEALTH MAINTENANCE Final Result from Last 3 Months or Most Recently Relevant to Health Maintenance Insurance [facility] Care Teams Orthodontist Small Business Owner Relationship Specialty Start Date End Date Eric Melissa MD [address] [place] [id number] PCP - General Internal Medicine 07/24/16
--- OUTSIDE RECORDS SUMMARY | 2024-10-16 15:28 | XMS_ITS | Encounter Summary ---
Author Organization [facility] Address [address] [place] [address] Care Team Providers Care Sports Internship Name Role Phone Eric Melissa MD Primary Care Provider [phone] Reason for Visit * Reason Onset Date Comments Back Pain 10/05/2024 Fall 10/05/2024 Encounter Details Date Type Department Care Team (Late st Contact Info) Description 10/05/2024 Telephone [facility] [address] [place] [phone] Eric Melissa MD [address] [place] [address] Back Pain; Fall Social History Tobacco Use [...] AM EST Patient is calling back from [phone] please call back * Celia Dawson MA [...] traveled recently to another state outside of [place], [place], [place], [place], [place], [place], [place]? no o If yes, did you quarantine [...] gather 3rd alliance party insurance information Third Alliance Party Information: not applicable PCP: Eric Melissa MD Payor: / No coverage found. documented in this encounter Plan of Treatment Upcoming Encounters Date Type Department Care Team (Late st Contact Info) Description 10/19/2024 10:30 AM EST Office Visit Internal Medicine - [address] [phone] Coy Shaw NP [address] [place] [phone] documented as of this encounter Visit Diagnoses Not on filedocumented in this encounter Care Teams Sports Internship Relationship Specialty Start Date End Date Eric Melissa MD [address] [place] [address] PCP - General Internal Medicine 07/24/16 documented as of this encounter
--- OUTSIDE RECORDS SUMMARY | 2024-10-16 15:28 | XMS_ITS | Encounter Summary ---
Author Organization [employer] Address [address] [facility] [address] [place] [address] Care Team Providers Care Coal Sample Tester Name Role Phone Unavailable Primary Care Provider Unavailabl e Reason for Visit * Reason Onset Date Comments dentures 04/09/2023 Encounter Details Date Type Department Care Team (Late st Contact Info) Description 04/09/2023 Telephone [facility] [address] [place], [place] [phone] Suzanne Matthew BDMichelle [address] [place], [place] [phone] dentures Social History Tobacco Use Types Packs/Day [...]
--- OUTSIDE RECORDS SUMMARY | 2024-10-16 15:28 | XMS_ITS | Clinical Summary ---
Author Organization [employer] Address [address] [facility] [address] [place] [address] Care Team Providers Care Supervisor Cloth Winding Name Role Phone Unavailable Primary Care Provider [...] patient's age to complete this topic Insurance [facility] MEDICAID STAND ADULT
--- OUTSIDE RECORDS SUMMARY | 2024-10-16 15:28 | XMS_ITS | Encounter Summary ---
Author Organization [employer] Address [address] [facility] 7t [place] [address] Care Team Providers Care Asset Protection Greeter Name Role Phone Unavailable Primary Care Provider Unavailabl e Reason for Visit * Reason Onset Date Comments appointment slip 02/11/2023 Encounter Details Date Type Department Care Team (Late st Contact Info) Description 02/11/2023 Telephone [facility] [address] [place], [place] [phone] Suzanne Matthew BDS [address] [place], [place] [phone] appointment slip Social History Tobacco Use Types [...]
== END 2024-10-16 13:44 | disposition home or self-care (01) ==
PROVIDERS: PCP Internal Medicine; Visit Provider Physician Assistant
DX: M96.1 Postlaminectomy syndrome, not elsewhere classified (principal)
CPT/HCPCS: 99213

== ENCOUNTER 2024-10-23 08:45 | Outpatient (AMB) | payer OTHER, SELFPAY ==
[2024-10-23 08:55] VITALS: BP 140/8; PULSE 59; O2SAT 97; BMI 29.9
--- NOTE | 2024-10-23 08:55 | MHC.OFFVIS ---
Vital Signs 10/23/24 08:55 Height 6 ft 2 in Weight 233 lb BMI 29.9 BP 140/8 H Blood Pressure Location Rt brachial Position Sitting Pulse 59 Pulse Source Pulse Oximeter Pulse Oximetry (%) 97 Oxygen Delivery Method Room Air Intake Visit Reasons: Follow up Biophysics Teacher Required: No Accompanied by: Self / Same As Patient Allergies No Known Allergies Allergy (Verified 10/23/24 09:03) Medication List - Last Reconciled 10/23/24 by LISS Murdock carbidopa-levodopa 50-200 mg ER 1 tab PO ONCE 30 days gukwbcitb-hacxpnse-lkhhqnvzrh 31.25-125-200 mg 1 tab PO QID 30 days cyclobenzaprine 5 - 10 mg (1 - 2 x 5 mg) PO BEDTIME PRN 30 days mecobalamin (vitamin B12) 1,000 mcg PO DAILY 30 days methylphenidate HCl 10 mg PO QAM 30 days walker As directed, U step walker HPI Comments Details: The patient is a 59-year-old male presenting with a follow-up for Parkinson's Disease management. Recent fall resulted in back muscle strain, back pain, possible, vertebral compression fractures, right hand injury. Patient initially seen at [facility], and I said to follow up with [facility] neurosurgery clinic, who advised him to undergo follow up back MRI. However, patient is concerned about doing MRI, due to history of claustrophobia and MRI, and concern for pain exacerbation upon laying flat for an extended period of time.. Patient reports is most concerning Parkinson's symptom is freezing gate and falling. Presents symptoms of freezing and falling. Falls occur primarily when transitioning from rest to movement, exacerbated by spinal issues. 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 Constipation is unresolved by Dulcolax, with symptoms persisting despite substantial fluid intake. Current medications include Carbidopa-Levodopa taken every three hours, showing reduced symptom control. Activities of daily living (ADL's): Independent Instrumental activities of daily living (IADL's): Independent Swallowing difficulty: Denies Cough: Denies Drooling: only at night Orthostatic lightheadedness: Denies Constipation: Difficulty school Q 2 days. Drinks 2 gal of water and 1 L soda a day. Urinary symptoms: Denies Tremor: None Dyskinesia: None Stiffness: back pain Musculoskeletal symptoms: Reports back pain Gait difficulties or changes: Reports Freezing episodes of gait: Reports Falls: Reports Mood difficulties or changes: Reports depression- frustration due to not being able to live as actively as he used to. Hallucinations: Denies Memory difficulties or changes: Denies Sleep difficulties: Denies Exercise routine: No specific exercise plan, owing to his gate and back difficulties. He does need to go up and down the stairs at his home.. Socialization and cognitive activities: his mother is supportive Medications Since the last visit, he did trial the Concerta 18 mg, but he felt that this was too strong. He trialed Rotary 48.75?195 mg cap ? two caps PO five times per day, however, he stated this made him too tired. He is since resumed carbidopa levodopa ER 50? 200 mg one tab five times a day, every three hours. Unfortunately, this wears off after about two hours. Review of Systems - Neurological: Denies tremor, dyskinesia, arm/leg stiffness. Reports falls, freezing episodes, and mobility issues. - Psychiatric: Reports depression, denies hallucinations. - Gastrointestinal: Reports constipation, hard stools. - Respiratory: Denies shortness of breath. - Musculoskeletal: Reports pain from falls. - General: Denies dizziness, denies lightheadedness. [facility] Medical History (Updated 04/21/24 @ 12:46 by LISS Murdock) Parkinsons disease Carpal tunnel syndrome of right wrist Injury of head and neck Surgical History History of back surgery History of carpal tunnel surgery H/O hernia repair Social History Alcohol intake: former Patient Tobacco Use Status: Never used Tobacco Physical Exam Vital Signs: Last Vital Signs Pulse 59 10/23/24 08:55 BP 140/8 H 10/23/24 08:55 Pulse Ox 97 10/23/24 08:55 Oxygen Delivery Method Room Air 10/23/24 08:55 BMI result Body Mass Index 29.9 Const General: cooperative and no acute distress Resp Effort & Inspection: normal respiratory effort and able to speak in complete sentences Neuro Other: General: A&O x's 3. Expression: Slightly decreased Voice: Soft Tremor: None Tone: BUE R > L tone Dyskinesia: None observed today FFM: Bradykinesia, more so on right Foot taps: Bradykinesia, more so on right Musculoskeletal: Back pain, causing restlessness needs to stand intermittently visit. Gait: Slow to stand, slight stoop, decreased arm swing, knees bent, short steps w/ low floor clearance. Gait became more festinating-freezing as visit progressed- to the point where patient require wheelchair to leave the office, where as he had walked with a cane. Last CD LD dose approximately 3 hours prior. Psych: Pleasant affect, but generally frustrated. 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 Code(s): G24.9 - Dystonia, unspecified; G20 - Parkinson's disease Category: Medical (2) Right hand pain: Code(s): M79.641 - Pain in right hand Category: Medical (3) Frequent falls: Code(s): R29.6 - Repeated falls Category: Medical (4) Parkinson disease with dyskinesia and fluctuating manifestations: Code(s): G20.B2 - Parkinson's disease with dyskinesia, with fluctuations Category: Medical (5) Hypersomnia: Code(s): G47.10 - Hypersomnia, unspecified Category: Medical Plan Parkinson's: - Discontinue carbidopa-levodopa 50-200 mg ER 25-100mg 2 tabs 5 x's per day (every 3 hrs) order. - Start Stalevo (guzcxrisr-dqahaahw-utkvfayjzq ) 31.25-125-200 mg- 1 tab 4 times a day - Start carbidopa-levodopa 50-200 mg ER- 1 tab daily at bedtime - Patient encouraged to obtain and use Parkinson's specific walker, U-step walker. - previous trials: Pramipexole 0.125mg -exacerbated daytime. - Future considerations: Vyalev. Constipation: - Recommend dietary changes and hydration monitoring. - Use Colace 100mg twice a day - Use MiraLAX 17 GM daily as needed for constipation. - Gradually decrease soda and high fluid intake to less than 100 ounces per day. - Monitor response to treatment. Hypersomnia, likely secondary to Parkinson's: - Trial methylphenidate IR 10 mg daily in the morning. - previous trials- Concerta 18 mg- patient felt it was too strong. Back pain: - follow up with neurosurgery to discuss if an open MRI is possible and if you may take prescribed medication for anxiety.Patient Instructions General: - We will mail patient a review of the above instructions patient education material. - Should symptoms worsen or concerns arise, contact our office for assistance and guidance. - Maintain follow-up appointments as advised for further medication and symptom management adjustments. Pt to follow-up in 6 months or sooner prn. Medications: New docusate sodium (Colace) 200 mg (2 x 100 mg) PO BEDTIME 30 days 60 caps 6RF polyethylene glycol 3350 (Miralax) 17 grams PO DAILY 30 days PRN 30 ea 6RF constipation hkoklrbro-qzmrgqli-jybshoqdvn 31.25-125-200 mg 1 tab PO QID 30 days 120 tabs 3RF methylphenidate HCl Partial Fill upon patient request. 10 mg PO QAM 30 days 30 tabs 0RF Changed From carbidopa-levodopa 50-200 mg ER 1 tab orally 5 x's per day; divide evenly over waking hours 30 days 150 tabs 1RF To carbidopa-levodopa 50-200 mg ER At bedtime 1 tab PO ONCE 30 days 30 tabs 3RF Discontinued carbidopa-levodopa 48.75-195 mg ER (Rytary) Discontinued Reason: Doctor's Order 2 caps orally 5 x's per day; divide evenly over waking hours 30 days 300 caps 6RF G20.B2 - Parkinson's disease with dyskinesia, with fluctuations pramipexole Discontinued Reason: Doctor's Order 0.125 mg PO QID 30 days 120 tabs 3RF methylphenidate HCl ER (Concerta) Partial Fill upon patient request. 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
--- OUTSIDE RECORDS SUMMARY | 2024-10-23 09:06 | XMS_ITS | Clinical Summary ---
Author Organization [employer] Address [address] [facility] 7t [place] [address] Care Team Providers Care Wellfield Technician Name Role Phone Unavailable Primary Care Provider [...] patient's age to complete this topic Insurance [facility] STAND ADULT
--- OUTSIDE RECORDS SUMMARY | 2024-10-23 09:06 | XMS_ITS | Clinical Summary ---
Author Organization [facility] [address] [facility] Building Address [address] [facility] [place] [address] Phone Care Team Providers Care Scanning Tech Name Role Phone Eric Melissa MD Primary Care Provider [phone] Allergies Active Allergy Reactions Criticality Noted Date Comments Codeine Nausea And Vomiting 04/02/2015 Ibuprofen Nausea And Vomiting 04/02/2015 Medications pramipexole (MIRAPEX) 0.25 mg tablet Take 1 Tablet by mouth 4 times daily. Active cyclobenzaprin e (FLEXERIL) 10 mg tablet TAKE 1 TABLET BY MOUTH AT BEDTIME ONCE DAILY NEEDED FOR MUSCLE SPASMS. 4 Active sildenafiL (VIAGRA) 50 mg tablet Take 1 tab 30 mintues before intercourse 2 Active carbidopa-levo dopa (SINEMET) 25-100 mg per tablet Take 2 tablets by mouth 3 times daily. Active acetaminophen (TYLENOL 8 HOUR) 650 mg 8 hr tablet Take 1 tablet (650 mg total) by mouth 2 (two) times a day if needed for mild pain. for pain 60 tablet 5 Active acetaminophen (TYLENOL 8 HOUR) 650 mg 8 hr tablet TAKE 1 TABLET BY MOUTH TWICE A DAY NEEDED FOR PAIN 4 10/18/19 25 Discontin ued(Reord er) Active Problems Problem Noted Date Diagnosed Date [...] Team Description 10/05/2024 Telephone [facility] [address] [facility] [place] [address] Eric Melissa MD Back Pain; [...] 01/13/2024 9:02 AM EDT Plan of Treatment Health Maintenance [...] Most Recently Relevant to Health Maintenance Insurance [facility] Care Teams Scanning Tech Relationship Specialty Start Date End Date Eric Melissa MD [address] [place] [id number] PCP - General Internal Medicine 07/24/16
--- OUTSIDE RECORDS SUMMARY | 2024-10-23 09:06 | XMS_ITS | Clinical Summary ---
Author Organization [facility], Address [address] [place] [address] Phone Care Team Providers Care Hot Roll Inspector Name Role Phone Eric Metzger Primary Care Provider [phone] Allergies Active Allergy Reactions Criticality Noted Date [...] patient's age to complete this topic Insurance [facility] Care Teams Hot Roll Inspector Relationship Specialty Start Date End Date Eric Metzger [address] [place] [address] PCP - General Internal Medicine 10/22/21
--- OUTSIDE RECORDS SUMMARY | 2024-10-23 09:06 | XMS_ITS | Encounter Summary ---
Author Organization [employer] Address [address] [facility] 7t [place] [address] Care Team Providers Care Html Developer Name Role Phone Unavailable Primary Care Provider Unavailabl e Reason for Visit * Reason Onset Date Comments appointment slip 02/11/2023 Encounter Details Date Type Department Care Team (Late st Contact Info) Description 02/11/2023 Telephone [facility] [address] [place], [place] [phone] Suzanne Matthew BDS [address] [place], [place] [phone] appointment slip Social History Tobacco Use Types [...]
--- OUTSIDE RECORDS SUMMARY | 2024-10-23 09:06 | XMS_ITS | Encounter Summary ---
Author Organization [employer] Address [address] [facility] 7t [place] [address] Care Team Providers Care Radiology Ct Technologist Name Role Phone Unavailable Primary Care Provider Unavailabl e Reason for Visit * Reason Onset Date Comments dentures 04/09/2023 Encounter Details Date Type Department Care Team (Late st Contact Info) Description 04/09/2023 Telephone [facility] [address] [place], [place] [phone] Suzanne Matthew BDMichelle [address] [place], [place] [phone] dentures Social History Tobacco Use Types Packs/Day [...]
--- OUTSIDE RECORDS SUMMARY | 2024-10-23 09:06 | XMS_ITS | Encounter Summary ---
Author Organization [facility] Address [address] [place] [address] Care Team Providers Care Sales Representative Education Courses Name Role Phone Eric Melissa MD Primary Care Provider [phone] Reason for Visit * Reason Onset Date Comments Back Pain 10/05/2024 Fall 10/05/2024 Encounter Details Date Type Department Care Team (Late st Contact Info) Description 10/05/2024 [facility] [address] [place] [phone] Eric Melissa MD [address] [place] [id number] Back Pain; Fall Social History Tobacco Use [...] EST Hospital follow up scheduled. * Francine Jallho - 10/06/2024 11:56 AM EST Patient is calling back from [phone] please call back * Celia Dawson MA [...] traveled recently to another state outside of [place], [place], [place], [place], [place], [place], MD? no o If yes, did you quarantine [...] of accident/Injury: No If yes, gather 3rd constitution party insurance information Third Republican Information: not applicable PCP: Eric Melissa MD Payor: / No coverage found. documented in this encounter Plan of Treatment Not on file documented as of this encounter Visit Diagnoses Not on filedocumented in this encounter Care Teams Sales Representative Education Courses Relationship Specialty Start Date End Date Eric Melissa MD [address] [place] [phone] PCP - General Internal Medicine 07/24/16 documented as of this encounter
== END 2024-10-23 11:30 | disposition home or self-care (01) ==
PROVIDERS: PCP Internal Medicine; Visit Provider Nurse Practitioner Family
DX: G20.B2 Parkinson's disease with dyskinesia, with fluctuations (principal); G24.9 Dystonia, unspecified; M79.641 Pain in right hand; R29.6 Repeated falls; G47.10 Hypersomnia, unspecified
CPT/HCPCS: 99214; G2211

== ENCOUNTER → 2024-10-23 08:45 | Outpatient (BNVA) | payer OTHER, SELFPAY | PROVIDERS: PCP Internal Medicine; Visit Provider Nurse Practitioner Family | DX: G20.B2 Parkinson's disease with dyskinesia, with fluctuations (principal); G24.9 Dystonia, unspecified; M79.641 Pain in right hand; R29.6 Repeated falls; G47.10 Hypersomnia, unspecified | CPT/HCPCS: 99212 ==

== ENCOUNTER 2025-07-09 15:46 | Outpatient (AMB) | payer OTHER, SELFPAY ==
--- NOTE | 2025-07-09 15:41 | A.OFFVIS_ITS ---
Intake Visit Reasons: urgent f/u per Dr. Amaro Supervisor Channel Process Required: No Accompanied by: Self / Same As Patient Allergies No Known Allergies Allergy (Verified 10/23/24 09:03) Medication List - Last Reconciled 07/09/25 by LISS Murdock carbidopa-levodopa 50-200 mg ER 1 tab PO ONCE 30 days carbidopa-levodopa 61.25-245 mg ER (Rytary) 2 caps orally 5 times per day; divide evenly over waking hours 30 days melvin As directed, Susan charles HPI Comments Details: 60-year-old male presents for urgent tele video visit Parkinson's medication concerns, however visit was conducted via telephone, as patient was unable to utilize televideo equipment today. He reports has been experiencing new symptoms since he started on Rytary, 61.25 mg 245 mg cap, 2 caps 5 times a day, taken every 3 hours at 7am, 10am, 1pm, 4pm, and 7pm. He states study wakes up at 6am, and he feels very good until about 12pm. However after 12pm, he starts experiencing hallucinations/illusions, increased tiredness, headache, worsening of his chronic back pain. He describes the hallucinations/illusions as something moves are looks different from what it actually is. He is prone to snoring, fragmented sleep, daytime sleepiness. He would like to revisit his previous order for methylphenidate 10 mg IR, which he took a few years ago with good effect. He did not have a positive effect from trial of Concerta. He denies any associated fever, signs of upper respiratory or urinary tract infections. He denies a previous history of headaches. He has never had a sleep study. 10/23/2024, HPI: The patient is a 59-year-old male presenting with a follow-up for Parkinson's Disease management. Recent fall resulted in back muscle strain, back pain, possible, vertebral compression fractures, right hand injury. Patient initially seen at [facility], and I said to follow up with [facility] neurosurgery clinic, who advised him to undergo follow up back MRI. However, patient is concerned about doing MRI, due to history of claustrophobia and MRI, and concern for pain exacerbation upon laying flat for an extended period of time.. Patient reports is most concerning Parkinson's symptom is freezing gate and falling. Presents symptoms of freezing and falling. Falls occur primarily when transiti oning from rest to movement, exacerbated by spinal issues. 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 Constipation is unresolved by Dulcolax, with symptoms persisting despite substantial fluid intake. Current medications include Carbidopa-Levodopa taken every three hours, showing reduced symptom control. Activities of daily living (ADL's): Independent Instrumental activities of daily living (IADL's): Independent Swallowing difficulty: Denies Cough: Denies Drooling: only at night Orthostatic lightheadedness: Denies Constipation: Difficulty school Q 2 days. Drinks 2 gal of water and 1 L soda a day. Urinary symptoms: Denies Tremor: None Dyskinesia: None Stiffness: back pain Musculoskeletal symptoms: Reports back pain Gait difficulties or changes: Reports Freezing episodes of gait: Reports Falls: Reports Mood difficulties or changes: Reports depression- frustration due to not being able to live as actively as he used to. Hallucinations: Denies Memory difficulties or changes: Denies Sleep difficulties: Denies Exercise routine: No specific exercise plan, owing to his gate and back difficulties. He does need to go up and down the stairs at his home.. Socialization and cognitive activities: his mother is supportive Medications Since the last visit, he did trial the Concerta 18 mg, but he felt that this was too strong. He trialed Rotary 48.75?195 mg cap ? two caps PO five times per day, however, he stated this made him too tired. He is since resumed carbidopa levodopa ER 50? 200 mg one tab five times a day, every three hours. Unfortunately, this wears off after about two hours. Review of Systems - Neurological: Denies tremor, dyskinesia, arm/leg stiffness. Reports falls, freezing episodes, and mobility issues. - Psychiatric: Reports depression, denies hallucinations. - Gastrointestinal: Reports constipation, hard stools. - Respiratory: Denies shortness of breath. - Musculoskeletal: Reports pain from falls. - General: Denies dizziness, denies lightheadedness. [facility] Medical History (Updated 07/09/25 @ 17:05 by LISS Murdock) Parkinsons disease Carpal tunnel syndrome of right wrist Injury of head and neck Surgical History History of back surgery History of carpal tunnel surgery H/O hernia repair Social History Alcohol intake: former Patient Tobacco Use Status: Never used Tobacco Physical Exam Const General: cooperative and no acute distress Resp Effort & Inspection: normal respiratory effort and able to speak in complete sentences Neuro Other: Alert and oriented Telehealth Telehealth Telehealth Platform: Telephone Location of provider rendering services: practice address Location of patient: address on file Patient Identification confirmed using: Name, : Yes Telehealth method: voice only Patient verbally consented to treatment: Yes Patient verbally consented to billing insurance company: Yes Patient informed of any privacy concerns related to visit: Yes Minutes spent on Phone/Video with Pt.: 15 Assessment & Plan Assessment & Plan (1) 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 Code(s): G24.9 - Dystonia, unspecified; G20 - Parkinson's disease Category: Medical (2) Parkinson disease with dyskinesia and fluctuating manifestations: Code(s): G20.B2 - Parkinson's disease with dyskinesia, with fluctuations Category: Medical (3) Hypersomnia: Code(s): G47.10 - Hypersomnia, unspecified Category: Medical (4) Hallucinatory illusions: Code(s): R44.2 - Other hallucinations Category: Medical (5) Snoring: Comment: [place] sleepiness scale 12 Code(s): R06.83 - Snoring Category: Medical Plan Parkinson's: * Continue Rytary 61.25-245 mg ER capsule 2 caps p.o. 5 times per day * However, increase interval between doses from every 3 hours to every 4 hours, as follows: * 2 caps at 6 am, 10 am, 2 pm, 6 pm, 10 pm * Is headaches and hallucinations/illusions do not improve, consider head imaging * Patient previously encouraged to obtain and use Parkinson's specific walker, U-step walker. * Previous trials: Pramipexole 0.125mg -exacerbated daytime. Stalevo (qrbomdncd-ajxvtbcb-glfrfauzym ) 31.25-125-200 mg- not tolerated, caused tingling and made him feel weird. Carbidopa levodopa ER dose at night, caused insomnia. Carbidopa levodopa IR 25-100 mg 2 tabs p.o. 5 times per day- had persistent off time * Future considerations: Vyalev or Onapgo Constipation: * Colace 100mg twice a day as needed * MiraLAX 17 GM daily as needed for constipation. * Limit soda intake * Limit high fluid intake to less than 100 ounces per day. Hypersomnia, likely secondary to Parkinson's: * In-lab sleep study to assess for sleep apnea * In-lab sleep study is required, as patient has Parkinson's disease * In the meantime, start methylphenidate IR 10 mg daily in the morning. * Previous trials- Concerta 18 mg- patient felt it was too strong. Back pain: * Follow-up with pain management as scheduled Pt to follow-up in 3-6 months or sooner prn. Orders: Orders RT PSG in-lab sleep study Today G20.B2 - Parkinson's disease with dyskinesia, with fluctuations, G47.10 - Hypersomnia, unspecified, R06.83 - Snoring Medications: New methylphenidate HCl Partial Fill upon patient request. 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
--- OUTSIDE RECORDS SUMMARY | 2025-07-09 20:13 | XMS_ITS | Encounter Summary ---
Author Organization [employer] Address [address] [facility] [address] [place] [address] Care Team Providers Care Psychiatric Nursing Aide Name Role Phone Unavailable Primary Care Provider Unavailabl e Reason for Visit * Reason Onset Date Comments dentures 04/09/2023 Encounter Details Date Type Department Care Team (Late st Contact Info) Description 04/09/2023 Telephone [facility] [address] [place], [place] [phone] Suzanne Matthew BDS [address] [place], [place] [phone] dentures Social History Tobacco Use Types Packs/Day [...]
--- OUTSIDE RECORDS SUMMARY | 2025-07-09 20:13 | XMS_ITS | Clinical Summary ---
Author Organization [employer] Address [address] [facility] 7t [place] [address] Care Team Providers Care Technical Cable Jointer Name Role Phone Unavailable Primary Care Provider [...] Panel 1966 SDOH Screening 1966 Sigmoidoscopy 1966 Disability Screening 1966 Alcohol/Substance Use Screening 1978 Hepatitis C Screening 01/22/1984 DTaP/Tdap/Td Vaccines (1 - Tdap) 1985 Hepatitis B Vaccines (1 of 3 - 19+ 3-dose series) 1985 Pneumococcal Vaccine: 50+ Years (1 of 1 - PCV) 01/22/2016 Zoster Vaccines (1 of 2) 01/22/2016 Tobacco Screening 11/22/2024 11/23/2023 COVID-19 Vaccine (3 - 2024-2 6 season) 2025 01/10/2021, 12/20/2020 Influenza Vaccine (#1) 2025 09/18/2017 RSV Patients and Patients Aged 60 years [...] age to complete this topic Meningococcal B Vaccine Aged Out No l onger eligible based on patient's age to complete this topic Meningococcal Vaccine Aged Out No karen cierra eligible based on patient's age to complete this topic RSV under 20 months Aged Out No longe r eligible based on patient's age to complete this topic Rotavirus Vaccines Aged Out No longer eligible based on patient's age to complete this topic [facility] ST[facility] AD[facility]
--- OUTSIDE RECORDS SUMMARY | 2025-07-09 20:13 | XMS_ITS | Encounter Summary ---
Author Organization [employer] Address [address] [facility] [address] [place] [address] Care Team Providers Care Furniture Polisher Name Role Phone Unavailable Primary Care Provider Unavailabl e Reason for Visit * Reason Onset Date Comments appointment slip 02/11/2023 Encounter Details Date Type Department Care Team (Late st Contact Info) Description 02/11/2023 Telephone [facility] [address] [place], [place] [phone] Suzanne Matthew BDS [address] [place], [place] [phone] appointment slip Social History Tobacco Use Types [...] to be mailed out to his address documented in this encounter Plan of Treatment Not on file documented as of this encounter Visit Diagnoses Not on filedocumented in this encounter
--- OUTSIDE RECORDS SUMMARY | 2025-07-09 20:13 | XMS_ITS ---
Author Name [facility] Organization Unknown Care Team Organization Name Specialty Phone Email Start Date End Da te [facility] Eric Melissa Primary Care 06/23/2022 04/03/2024
--- OUTSIDE RECORDS SUMMARY | 2025-07-09 20:13 | XMS_ITS | Clinical Summary ---
Author Organization [place] [address] [address] [facility] Address [address] [place] [address] Phone Care Team Providers Care Correctional Supervisor Lieutenant Name Role Phone Winter Blair MD Primary Care Provider [phone] Allergies Active Allergy Reactions Criticality Noted Date Comments Codeine Nausea And Vomiting 04/02/2015 Ibuprofen Nausea And Vomiting 04/02/2015 Medications pramipexole (MIRAPEX) 0.25 mg tablet Take 1 Tablet by mouth 4 times daily. Active carbidopa-levod opa-entacapone (STALEVO) 31.25-125-200 mg per tablet TAKE 1 TAB ORALLY 4 TIMES A DAY FOR 30 DAYS 10/25/2024 Active acetaminophen (TYLENOL 8 HOUR) 650 mg 8 hr tablet TAKE 1 TABLET (650 MG TOTAL) BY MOUTH 2 (TWO) TIMES A DAY IF NEEDED FOR MILD PAIN. FOR PAIN 60 tablet 3 11/28/2024 Active cyclobenzaprine (FLEXERIL) 10 mg tablet Take 1 tablet (10 mg total) by mouth 2 (two) times a day if needed for muscle spasms. 180 tablet 3 01/19/2025 Active sildenafiL (VIAGRA) 50 mg tablet Take 1 tablet (50 mg total) by mouth if needed for erectile dysfunction. 10 tablet 1 01/19/2025 Active Rytary 61.25-245 mg per XR capsule FOR 30 DAYS 2 CAPS ORALLY 5 TIMES PER DAY DIVIDE EVENLY OVER WAKING HOURS 03/22/2025 Active Active Problems Problem Noted Date Diagnosed Date Erectile dysfunction 01/19/2025 Constipation 01/19/2025 Multiple falls 01/19/2025 Lumbar spondylosis 05/21/2022 Anxiety 10/07/2021 Bipolar disorder ([facility] V24, [facility] V28) 09/17 Diverticulosis 09/18/2016 Parkinson's disease ([facility] V24, [facility] V28) 0 01/01/2015 Overview (10/09/2024): Neurology (10/15/17): second opinion [...] to his next appointment. Foot drop 08/10/2014 Resolved Problems Problem Noted Date Diagnosed Date Resolved Date Abdominal wall pain 05/17/2019 01/20/20 25 Encounters Date Type Department Care Team Description 05/22/2025 8:44 AM EDT - 05/22/2025 11:59 PM EDT Hospital Encounter CT Scan [address] [place] [address] Personal history of nicotine dependence; Encounter for screening for malignant neoplasm of respiratory organs Discharge Disposition: Home or Self Care 05/22/2025 8:15 AM EDT Office Visit Lung Screening Program - [place] [address] [facility] [address] [place] [phone] Ilene Davies NP Encounter for screening for malignant neoplasm of lung in former smoker who quit in past 15 years with 30 pack year history or greater (Primary Dx) 05/14/2025 10:30 AM EDT Consult Orthopedic Surgery - [place] [address] [facility] [address] [place] [phone] Ward Duvall MD Right shoulder pain, unspecified chronicity (Primary Dx); Traumatic tear of right rotator cuff, unspecified tear extent, initial encounter 05/04/2025 Telephone Hematology Oncology [address] [place] [phone] Marlyn La, 05/03/2025 1:00 PM EDT Office Visit Hematology Oncology [address] [place] [phone] Marlyn La, Thrombocytosis 04/10/2025 8:30 AM EDT Office Visit [facility] [address] [place] [phone] Eric Melissa MD Routine general medical examination at a health care facility (Primary Dx); Acute pain of right shoulder; Screening for prostate cancer; Screening for lung cancer from Last 3 Months Immunizations Immunization Administration Dates Next Due Influenza trivalent, 0.5mL, [...] History Medical History Date Comments Parkinson's disease ([facility] V24, [facility] V28) DX:Parkinson's disease (HCC) Bipolar disorder (CMS/H[facility] V24, [facility] V28) DX:Bipolar disorder (HCC) Anxiety DX:Anxiety Family History Medical History Relation Name Comments Hypertension Father Other: Heart disease Father Valvula r heart disease Stroke Father Relation Name Status Comments Brother Alive Father Sister Alive Social History Tobacco Use Types Packs/Day Years Used Date Smoking Tobacco: Former Cigarettes 1.5 34 1 1 - 2014 Smokeless Tobacco: Never Tobacco Cessation:Counseling Given: Not Answered Alcohol Use Standard Drinks/Week Comments No 0 (1 standard drink = 0.6 oz pur e alcohol) Sex and Gender Information Value Date Recorded Sex Assigned at Not on file Legal Sex Male 1:16 PM EST Gender Identity Not on file Sexual Orientation Not on file Obstetrics History Last Filed Vital Signs Vital Sign Reading Time Taken Comments Blood Pressure 138/77 05/03/2025 12:51 PM EDT Pulse 69 05/03/2025 12:51 PM EDT Temperature 37.1 C (98.8 F) 05/22/2025 8:35 AM EDT Respiratory Rate - - Oxygen Saturation 99% 05/03/2025 12:51 PM EDT Inhaled Oxygen Concentration - - Weight 103 kg (228 lb) 05/03/2025 12:51 PM EDT Height 185.4 cm (6' 1 ) 05/03/2025 12:51 PM EDT Body Mass Index 30.08 05/03/2025 12:51 PM EDT Plan of Treatment Upcoming Encounters Date Type Department Care Team (Late st Contact Info) Description 08/02/2025 9:30 AM EST Office Visit Hematology Oncology [address] [place] [phone] Marlyn La, DO [address] [place] [address] Health Maintenance Due Date Last Done Comments DTaP,Tdap,and Td Vaccines (1 - Tdap) 1985 Hepatitis B Vaccines (1 of 3 - 19+ 3-dose series) 1985 Pneumococcal Vaccine: 50+ Years (1 of 1 - PCV) 01/22/2016 Zoster Vaccines (1 of 2) 01/22/2016 HIV Screening 07/25/2022 Hepatitis C Screening 07/25/2022 Social Influencers of Health Screening 07/25/2022 Depression Screening 08/16/2024 COVID-19 Vaccine (3 - 2024-2 6 season) 2025 01/10/2021, 12/20/2020 Influenza Vaccine (#1) 2025 09/18/2017 Lung Cancer Screening (Low Dose CT) 05/22/2026 05/22/2025 Colorectal Cancer Screening: Colonoscopy 09/18/2026 09/18/2016 Cholesterol Screening (Lipid Panel) 04/10/2030 04/10/2025, 03/26/2022 RSV Immunization Adult Patients (1 - 1-dose 75+ series) 2041 HIB [...] Procedure Name Priority Date/Time Associated Diagnosis Comments CT LUNG SCREENING Routine 05/22/2025 9:0 9 AM EDT Personal history of nicotine dependence Encounter for screening for malignant neoplasm of respiratory organs XR SHOULDER 2+ VIEWS RIGHT Routine 05/14/2025 10:41 AM EDT Right shoulder pain, unspecified chronicity CBC WITH AUTO DIFFERENTIAL Routine 05/03/2025 1:21 PM EDT Thrombocytosis JAK2 GENE, V617F MUTATION, QUANTITATIVE, MOLECULAR STUDY Routine 05/03/2025 1:21 PM EDT Thrombocytosis VITAMIN B12 AND FOLATE Routine 1:21 PM EDT Thrombocytosis HAPTOGLOBIN Routine 05/03/2025 1:21 PM EDT Thrombocytosis LACTATE DEHYDROGENASE Routine 05/03/2025 1:21 PM EDT Thrombocytosis FERRITIN Routine 05/03/2025 1:21 PM EDT Thrombocytosis IRON AND TIBC Routine 05/03/2025 1:21 PM EDT Thrombocytosis CBC AND DIFFERENTIAL Routine 05/03/2025 1:21 PM EDT Thrombocytosis CBC WITH AUTO DIFFERENTIAL Routine 04/10/2025 9:24 AM EDT Routine general medical examination at a [facility] facility CBC AND DIFFERENTIAL Routine 04/10/2025 9:24 AM EDT Routine general medical examination at a [facility] facility COMPREHENSIVE METABOLIC PANEL Routine 04/10/2025 9:24 AM EDT Routine general medical examination at [facility] facility LIPID PANEL WITH REFLEX TO DIRECT LDL Routine 04/10/2025 9:24 AM EDT Routine general medical examination at a [facility] facility PROSTATE SPECIFIC ANTIGEN SCREEN Routine 04/10/2025 9:24 AM EDT Screening for prostate cancer HM COLONOSCOPY Routine 09/18/2016 from Last 3 Months or Most Recently Relevant to Health Maintenance Results * CT Lung Screening (05/22/2025 9:09 AM EDT) Anatomical Region Laterality Modality Chest Computed Tomogra phy 05/30/2025 11:0 3 AM EDT Impressions 05/30/2025 11:20 AM EDT No suspicious pulmonary nodules. Lung RADS 2-benign. Recommend continued screening with low-dose chest CT in 12 months. -------- FINAL REPORT -------- Dictated By: JOE RAMIREZ Dictated Date: 05/30/2025 11:03 ET Assigned Physician: JOE RAMIREZ Reviewed and Electronically Signed By: JOE RAMIREZ Signed Date: 05/30/2025 11:20 ET Workstation ID: [id number] Transcribed By: Self Edit Transcribed Date: 05/30/2025 11:03 ET Narrative 05/30/2025 11:20 AM EDT PROCEDURE: Chest CT INDICATION: Lung cancer screening, former smoker, 52 pack year smoking history TECHNIQUE: Chest CT without contrast. Multi planar reformats were created and interpreted. The examination was performed utilizing dose reduction techniques. Total DLP 180 COMPARISON: None FINDINGS: LUNGS/PLEURA: Central airways are patent. Chronic bronchitis with mild emphysema. Right Bochdalek hernia with adjacent atelectasis. 2 mm nodule in the left upper lobe No suspicious pulmonary nodules. No pleural effusion or pneumothorax. MEDIASTINUM: Thyroid gland is unremarkable. No mediastinal or hilar lymphadenopathy. Cardiac chambers are normal in size. No pericardial effusion. Esophagus is normal. Moderate coronary artery calcifications. CHEST WALL: No axillary lymphadenopathy or superficial hematoma. UPPER ABDOMEN:Hepatic steatosis. BONES: No acute fracture. Scattered degenerative changes seen throughout the bones. Procedure Note Joe Ramirez MD - 05/30/2025 PROCEDURE: Chest CT INDICATION: Lung cancer screening, former smoker, 52 pack year smokinghistory TECHNIQUE: Chest CT without contrast. Multi planar reformats were createdand interpreted. The examination was performed utilizing dose reductiontechniques. Total DLP 180 COMPARISON: None FINDINGS: LUNGS/PLEURA: Central airways are patent. Chronic bronchitis with mildemphysema. Right Bochdalek hernia with adjacent atelectasis. 2 mm nodulein the left upper lobe No suspicious pulmonary nodules. No pleuraleffusion or pneumothorax. MEDIASTINUM: Thyroid gland is unremarkable. No mediastinal or hilarlymphadenopathy. Cardiac chambers are normal in size. No pericardialeffusion. Esophagus is normal. Moderate coronary artery calcifications. CHEST WALL: No axillary lymphadenopathy or superficial hematoma. UPPER ABDOMEN:Hepatic steatosis. BONES: No acute fracture. Scattered degenerative changes seen throughoutthe bones. IMPRESSION: No suspicious pulmonary nodules. Lung RADS 2-benign. Recommend continuedscreening with low-dose chest CT in 12 months. -------- FINAL REPORT -------- Dictated By: JOE RAMIREZ Dictated Date: 05/30/2025 11:03 ET Assigned Physician: JOE RAMIREZ Reviewed and Electronically Signed By: JOE RAMIREZ Signed Date: 05/30/2025 11:20 ET Workstation ID: [id number] Transcribed By: Self Edit Transcribed Date: 05/30/2025 11:03 ET us Analilia Kim MD IMG CT PROCEDURES Final Result * XR Shoulder 2+ Views Right (05/14/2025 10:41 AM EDT) Anatomical Region Laterality Modality Upper Extremities, Shoulder Right Comp uted Radiography Narrative 05/14/2025 10:54 AM EDT 4 view x-rays of the right shoulder show no acute fracture or dislocation. There are mild glenohumeral arthritic changes with joint space narrowing and marginal osteophyte formation. There are moderate degenerative changes at acromioclavicular joint. Soft tissue shadows appear normal. Impression: Mild degenerative changes of the right glenohumeral joint and mild degenerative changes at the acromioclavicular joint. us Ward Duvall MD IMG XR PROCEDURES Final Result * (ABNORMAL) Vitamin B12 and folate (05/03/2025 1:21 PM EDT) Vitamin B-12 428 250 - 900 pcg/mL LAB CHEMISTRY METHOD 05/03/2025 2:29 PM EDT [facility] Folate 19.2(H) 2.8 - 17.0 ng/ml LAB CHEMISTRY METHOD 05/03/2025 2:29 PM EDT [facility] Blood Venous blood specimen / Unknown Venipuncture / Unknown 05/03/2025 1:21 PM EDT 05/03/2025 1:32 PM EDT us Marlyn La DO LAB BLOOD ORDERABLES Final Result [facility] [address] [place] [address], * (ABNORMAL) JAK2 gene, V617F mutation, quantitative, molecular study (05/03/2025 1:21 PM EDT) Pathologist [facility] JAK2 (V617F) Mutation DETECTED( A) Not detected 05/08/2025 2:25 PM EDT [facility] WBC Percent with V617F Mutation 23.1(H) <0.1 % 05/08/2025 2:25 PM EDT [facility] Comment: This procedure uses real-time polymerase chain reaction amplification and detection to quantify the percentage of white blood cells containing the V617F (G>T at position 617) point mutation in the autoinhibitory pseudokinase domain of the JAK2 protein. The lower limit of quantitation is 0.1% (1 in 1000 cells). A Not detected result does not preclude the presence of this or another point mutation in this gene. This test uses commercial reagents that have not been approved or cleared by the FDA. The FDA has determined that such clearance or approval is not necessary. The performance characteristics of this procedure were determined by [facility]. This test is performed pursuant to a license agreement with [employer] Test performed at [facility], [address] , [place] [address] Mer Gonzalez MD, PhD - Equipment Analyst Blood Venous blood specimen / Unknown Venipuncture / Unknown 05/03/2025 1:21 PM EDT 05/03/2025 1:33 PM EDT Marlyn La DO LAB MOLECULAR DIAGNOS TICS ORDERABLES Final Result [facility] [address] [place] [address] * (ABNORMAL) CBC auto differential (05/03/2025 1:21 PM EDT) Only the most recent of2 resultswithin the time period is included. Pathologist [facility] WBC 10.1 4.8 - 10.8 K/[facility] LAB HEMETOLOGY METHOD 05/03/2025 1:51 PM EDT [facility] RBC 5.20 4.50 - 5.50 M/mcL LAB H[facility]OLOGY [facility]/03[facility]25 [facility] Hemoglobin 15.6 13.5 - 17.5 g/dL LAB HEMETOLOGY METHOD 05/03/2025 1:51 PM [facility] Hematocrit 48.9 42.0 - 54.0 % LAB HEMETOLOGY METHOD 05/03/2025 1:[facility] MCV 95.0 79.0 - 98.0 FL LAB HEMETOLOGY METHOD 05/03/2025 1:51 PM [facility] MCH 30.3 27.0 - 32.0 pcg LAB HEMETOLOGY METHOD 05/03/2025 1:51 PM [facility] MCHC 31.9(L) 32.0 - 37.0 g/dL LAB HEMETOLOGY METHOD 05/03/2025 1:51 PM [facility] RDW 14.9 11.0 - 15.0 % LAB HEMETOLOGY METHOD 05/03/2025 1:51 PM [facility] Platelets 521(H) 130 - 400 K/mcL LAB HEMETOLOGY METHOD 05/03/2025 1:51 PM [facility] MPV 9.8 7.0 - 11.0 FL LAB HEMETOLOGY METHOD 05/03/2025 1:51 PM [facility] NRBC 0.0 <1.0 % LAB HEMETOLOGY METHOD 05/03/2025 1:[facility] NRBC Absolute 0.00 <0.10 K/mcL LAB HEMETOLOGY METHOD 05/03/2025 1:51 PM [facility] Neutrophils Relative 73.4 % LAB HEMETOLOGY METHOD 05/03/2025 1:[facility] Lymphocytes Relative 16.4 % LAB HEMETOLOGY METHOD 05/03/2025 1:51 PM EDT [facility] Monocytes Relative 6.5 % LAB HEMETOLOGY METHOD 05/03/2025 1:51 PM EDT [facility] Eosinophils Relative 2.3 % LAB HEMETOLOGY METHOD 05/03/2025 1:51 PM EDT [facility] Basophils Relative 0.8 % LAB HEMETOLOGY METHOD 05/03/2025 1:51 PM EDT [facility] Immature Granulocytes Relative 0.6 % LAB HEMETOLOGY METHOD 05/03/2025 1:51 PM EDT [facility] Neutrophils Absolute 7.40(H) 1.50 - 7.00 K/mcL LAB HEMETOLOGY METHOD 05/03/2025 1:51 PM EDT [facility] Lymphocytes Absolute 1.65 1.00 - 5.00 K/mcL LAB HEMETOLOGY METHOD 05/03/2025 1:51 PM EDT [facility] Monocytes Absolute 0.66 0.20 - 1.00 K/mcL LAB HEMETOLOGY METHOD 05/03/2025 1:51 PM EDT [facility] Eosinophils Absolute 0.23 0.00 - 0.50 K/mcL LAB HEMETOLOGY METHOD 05/03/2025 1:51 PM EDT [facility] Basophils Absolute 0.08 0.00 - 0.20 K/mcL LAB HEMETOLOGY METHOD 05/03/2025 1:51 PM EDT [facility] Immature Granulocytes Absolute 0.06(H) 0.00 - 0.03 K/mcL LAB HEMETOLOGY METHOD 05/03/2025 1:51 PM [facility] Blood Venous blood specimen / Unknown Venipuncture / Unknown 05/03/2025 1:21 PM EDT 05/03/2025 1:33 PM EDT us Marlyn La DO LAB BLOOD ORDERABLES Final Result [facility] [address] [place] [address], [place] [phone] * Iron and TIBC (05/03/2025 1:21 PM EDT) Iron 83 50 - 160 mcg/dL LAB CHEMISTRY METHOD 05/03/2025 2:07 PM EDT [facility] TIBC 281 250 - 450 mcg/dL LAB CHEMISTRY METHOD 05/03/2025 2:07 PM EDT [facility] Iron Saturation 30 20 - 50 % LAB CHEMISTRY METHOD 05/03/2025 2:07 PM EDT [facility] Blood Venous blood specimen / Unknown Venipuncture / Unknown 05/03/2025 1:21 PM EDT 05/03/2025 1:32 PM EDT us Marlyn La DO LAB BLOOD ORDERABLES Final Result Performing Organization Address [facility]/ZIP Co de Phone Number [facility] [address] [place] [address], [place] [phone] * Lactate dehydrogenase (05/03/2025 1:21 PM EDT) LDH 215 120 - 246 unit/L LAB CHEMISTRY METHOD 05/03/2025 2:07 PM EDT [facility] Blood Venous blood specimen / Unknown Venipuncture / Unknown 05/03/2025 1:21 PM EDT 05/03/2025 1:32 PM EDT us Marlyn La DO LAB BLOOD ORDERABLES Final Result Performing Organization Address City/[facility]/ZIP Co de Phone Number [facility] [address] [place] [address], [place] [phone] * Haptoglobin (05/03/2025 1:21 PM EDT) Haptoglobin 54 16 - 200 mg/dL LAB CHEMISTRY METHOD 05/03/2025 2:07 PM EDT [facility] Blood Venous blood specimen / Unknown Venipuncture / Unknown 05/03/2025 1:21 PM EDT 05/03/2025 1:32 PM EDT Marlyn La DO LAB BLOOD ORDERABLES Final Result [facility] [address] [place] [address], [place] [phone] * Ferritin (05/03/2025 1:21 PM EDT) Pathologist [facility] Ferritin 125 26 - 388 ng/mL LAB CHEMISTRY METHOD 05/03/2025 2:29 PM EDT [facility] Blood Venous blood specimen / Unknown Venipuncture / Unknown 05/03/2025 1:21 PM EDT 05/03/2025 1:32 PM EDT Marlyn La DO LAB BLOOD ORDERABLES Final Result Performing Organization Address City/[facility]/ZIP Co de Phone Number [facility] [address] [place] [address], [place] [phone] * Prostate specific antigen screen (04/10/2025 9:24 AM EDT) PSA 0.96 0.00 - 4.00 ng/mL LAB CHEMISTRY METHOD 04/10/2025 7:04 PM EDT [facility] Blood Venous blood specimen / Unknown Venipuncture / Unknown 04/10/2025 9:24 AM EDT 04/10/2025 9:24 AM EDT Narrative [facility] - 04/10/2025 7:04 PM EDT The Siemens Advia Centaur Chemiluminescent Immunoassay is used. Results obtained with different assay methods or kits cannot be used interchangeably. Results cannot be interpreted as absolute evidence of the presence or absence of malignant disease. us Eric Melissa MD LAB BLOOD ORDERABLES Rizwana l Result Performing Organization Address [facility]/State/ZIP Co de Phone Number [facility] [address] [place] [address], [place] [phone] * Lipid panel with reflex to direct LDL (04/10/2025 9:24 AM EDT) Cholesterol 177 0 - 200 mg/dL LAB CHEMISTRY METHOD 04/10/2025 6:56 PM EDT [facility] Triglycerides 128 0 - 150 mg/dL LAB CHEMISTRY METHOD 04/10/2025 6:56 PM EDT [facility] HDL 64 >=40 mg/dL LAB CHEMISTRY METHOD 04/10/2025 6:56 PM EDT [facility] LDL Calculated 87 0 - 100 mg/dL LAB CHEMISTRY METHOD 04/10/2025 6:56 PM EDT [facility] Comment:Estimated LDL Calcul ated using equation: Total cholesterol - HDL cholesterol - (Triglycerides/5) VLDL Cholesterol Reji 25.6 mg/dL LAB CHEMISTRY METHOD 04/10/2025 6:56 PM EDT [facility] Non HDL Chol. (LDL+VLDL) 113 <145 mg/dL LAB CHEMISTRY METHOD 04/10/2025 6:56 PM EDT [facility] Chol/HDL Ratio 2.8 0.0 - 4.4 LAB CHEMISTRY METHOD 04/10/2025 6:56 PM EDT [facility] Blood Venous blood specimen / Unknown Venipuncture / Unknown 04/10/2025 9:24 AM EDT 04/10/2025 9:24 AM EDT Eric Melissa MD LAB BLOOD ORDERABLES Rizwana l Result [facility] [address] [place] [address], * Comprehensive metabolic panel (04/10/2025 9:24 AM EDT) Sodium 138 133 - 145 mmol/L LAB CHEMISTRY METHOD 04/10/2025 6:56 PM EDT [facility] Potassium 5.1 3.5 - 5.5 mmol/L LAB CHEMISTRY METHOD 04/10/2025 6:56 PM [facility] Chloride 104 96 - 110 mmol/L LAB CHEMISTRY METHOD 04/10/2025 6:56 PM [facility] CO2 29 21 - 32 mmol/L LAB CHEMISTRY METHOD 04/10/2025 6:56 PM [facility] Anion Gap 5 3 - 11 LAB CHEMISTRY METHOD 04/10/2025 6:56 PM [facility] Glucose 91 70 - 100 mg/dL LAB CHEMISTRY METHOD 04/10/2025 6:56 PM [facility] BUN 12 5 - 25 mg/dL LAB CHEMISTRY METHOD 04/10/2025 6:56 PM [facility] Creatinine 0.90 0.70 - 1.30 mg/dL LAB CHEMISTRY METHOD 04/10[facility]2025 6:[facility] eGFR 98 >=60 mL/min/1. 73m2 LAB CHEMISTRY METHOD 04/10/2025 6:56 PM [facility] Comment:Calculation based on the Chronic Kidney Disease Epidemiology Collaboration (CKD-EPI) equation refit without adjustment for race. BUN/Creatinine Ratio 13.3 LAB CHEMISTRY METHOD 04/10/2025 6:56 PM [facility] Calcium 9.8 8.5 - 10.5 mg/dL LAB CHEMISTRY METHOD 04/10/2025 6:56 PM [facility] AST (SGOT) 22 10 - 42 unit/L LAB CHEMISTRY METHOD 04/10/2025 6:56 PM EDT [facility] ALT (SGPT) 11 10 - 60 unit/L LAB CHEMISTRY METHOD 04/10/2025 6:56 PM EDT [facility] Alkaline Phosphatase 107 42 - 121 unit/L LAB CHEMISTRY METHOD 04/10/2025 6:56 PM EDT [facility] Total Protein 6.9 6.0 - 8.0 g/dL LAB CHEMISTRY METHOD 04/10/2025 6:56 PM EDT [facility] Albumin 4.2 3.2 - 5.0 g/dL LAB CHEMISTRY METHOD 04/10/2025 6:56 PM EDT [facility] Total Bilirubin 1.0 0.0 - 1.4 mg/dL LAB CHEMISTRY METHOD 04/10/2025 6:56 PM EDT [facility] Blood Venous blood specimen / Unknown Venipuncture / Unknown 04/10/2025 9:24 AM EDT 04/10/2025 9:24 AM EDT Eric Melissa MD LAB BLOOD ORDERABLES Rizwana aguirre Result [facility] [address] [place] [address], * Colonoscopy (09/18/2016) Colonoscopy No interpretation abstracted Anatomical Region Laterality Modality Other Historical Provider HEALTH MAINTENANCE Final Result from Last 3 Months or Most Recently Relevant to Health Maintenance Insurance [facility] Care Teams Correctional Supervisor Lieutenant Relationship Specialty Start Date End Date Winter Blair MD [address] [facility] [place] [id number] PCP - General Internal Medicine 05/21/25
== END 2025-07-10 08:02 | disposition home or self-care (01) ==
LOC: HO.HSMS 15:46
PROVIDERS: PCP Internal Medicine; Visit Provider Nurse Practitioner Family
DX: G24.9 Dystonia, unspecified (principal); G20.C Parkinsonism, unspecified; G20.B2 Parkinson's disease with dyskinesia, with fluctuations; G47.10 Hypersomnia, unspecified; R44.2 Other hallucinations; R06.83 Snoring
CPT/HCPCS: 99214